=== PATIENT | male | born 1995 | race Caucasian/White ===

== ENCOUNTER 2018-07-05 14:47 | Emergency (ER) | payer BC, MEDICAID ==
[2018-07-05] MEDS ORDERED: 0.9 % SODIUM CHLORIDE 1,000 ML BAG IV ONE ×3 (16:14→18:08)
[2018-07-05] MEDS ORDERED: ACETAMINOPHEN 1,000 MG/100 ML BTL IVPB ONE (16:14)
[2018-07-05 16:32] LABS: HEMATOCRIT 40.7 % (42.0-52.0); HEMOGLOBIN 12.9 gm/dl (14.0-18.0); MEAN CELL VOLUME 98.3 fl (81-97); MEAN CORPUSCULAR HGB CONC 31.7 g/dl (32-36); MEAN PLATELET VOLUME 9.7 fl (7.4-10.4); PLATELET COUNT 240 K/uL (130-400); RED BLOOD COUNT 4.14 M/uL (4.40-5.70); RED CELL DISTRIBUTION WIDTH 13.6 % (11.5-14.5)
[2018-07-05 16:38] LABS: MEAN CORPUSCULAR HEMOGLOBIN 31.1 pg (27-33); WHITE BLOOD COUNT W/O DIFF 30.8 K/uL (4.2-12.2)
[2018-07-05 16:39] LABS: STREP A SCREEN POSITIVE (NEGATIVE)
[2018-07-05 16:45] LABS: INFLUENZA A NEGATIVE (NEGATIVE); INFLUENZA B NEGATIVE (NEGATIVE)
[2018-07-05] MEDS ORDERED: CEFTRIAXONE 1GM/50ML BAG 1 GM/50 ML BAG IVPB ONE (16:45)
[2018-07-05 16:46] LABS: BLOOD UREA NITROGEN 20 mg/dL (6-20); CREATININE 0.6 mg/dL (0.7-1.2); EST GLOMERULAR FILTRATION RATE > 60 mL/min
--- NOTE | 2018-07-05 16:46 | Emergency Department Record ---
History of Present Illness - General Chief Complaint: Fever Stated Complaint: FEVER Time Seen by Provider: 07/05/18 16:05 Source: Patient, Family Mode of Arrival: Wheelchair Limitations: No limitations - History of Present Illness Initial Comments: 22 yo male with CP presents with fever, nasal drainage, and mild cough. The onset of the nasal drainage was the last few days. He developed a fever today. No nausea or vomiting. No rash. No diarrhea. He has an extensive history of seizures. He has had a few seizures as well. This is not unusual with his CP when he has fever. His mother noted some odor in his breath. He is eating and drinking normally. He has been more tired this afternoon. His baseline is that he groans, yells, laughs and generally feisty. MD Complaint: Fever, Malaise Onset/Timin -: Days(s) Context: Other Associated Symptoms: Denies other symptoms Treatments Prior to Arrival: None - Related Data Previous Rx's Medication Instructions Recorded Amoxicillin/Potassium Clav 1 tab PO TID #30 tab 07/05/18 [Augmentin 500Mg/125Mg] Azithromycin [Zithromax] 250 mg PO DAILY #4 tablet 07/05/18 Allergies Allergy/AdvReac Type Severity Reaction Status Date / Time No Known Drug Allergies Allergy Verified 07/05/18 15:28 Travel Screening - Travel/Exposure Within Last 30 Days Have you traveled within the last 30 days?: No Review of Systems Constitutional: Reports: Fever, Malaise Eyes: Denies: Eye discharge, Eye pain, Photophobia, Vision change ENT: Reports: Congestion, Throat pain. Denies: Ear pain Respiratory: Reports: Cough Cardiovascular: Denies: Chest pain, Syncope Endocrine: Reports: Fatigue Gastrointestinal: Denies: Abdominal pain, Diarrhea, Nausea, Vomiting Genitourinary: Denies: Dysuria, Frequency, Hematuria Musculoskeletal: Denies: Arthralgia, Back pain, Myalgia Skin: Denies: Bruising, Change in color, Rash Neurological: Reports: Seizure, Other (Non verbal at baseline) Past Medical History - SOCIAL HISTORY Smoking Status: Never smoker Alcohol Use: None Drug Use: None - RESPIRATORY Hx Respiratory Disorders: No - CARDIOVASCULAR Hx Cardio Disorders: No - NEURO Hx Neuro Disorders: Yes Hx Seizures: Yes Comment:: CP - GI Hx GI Disorders: No - Hx Genitourinary Disorders: No - ENDOCRINE Hx Endocrine Disorders: No - MUSCULOSKELETAL Hx Musculoskeletal Disorders: Yes Hx Musculoskeletal Disease: Yes (CP) - PSYCH Hx Psych Problems: Yes - HEMATOLOGY/ONCOLOGY Hx Hematology/Oncology Disorders: No Family Medical History Any Significant Family History?: Yes Hx Depression: Mother Hx Heart Disease: Grandparents Hx HTN: Grandparents Hx Stroke: Grandparents Physical Exam - General General Appearance: Alert, Cooperative Limitations: Other (Severe CP) - Head Head exam: Atraumatic, Normocephalic, Normal inspection - Eye Eye exam: Normal appearance, PERRL. negative: Conjunctival injection - ENT ENT exam: Mucous membranes moist, TM's normal bilaterally. negative: Normal orophraynx Ear exam: Normal external inspection Nasal Exam: Discharge Mouth exam: Normal external inspection Teeth exam: Normal inspection Throat exam: Tonsillar erythema, Other (odorous breath) - Neck Neck exam: Normal inspection, Full ROM. negative: Lymphadenopathy - Respiratory Respiratory exam: Normal lung sounds bilaterally. negative: Rhonchi, Stridor, Wheezes - Cardiovascular Cardiovascular Exam: Normal rhythm, Tachycardia - GI/Abdominal GI/Abdominal exam: Soft. negative: Distended, Guarding, Rebound, Rigid, Tenderness - Rectal Rectal exam: Deferred - exam: Deferred - Extremities Extremities exam: negative: Pedal edema, Tenderness - Back Back exam: Denies: CVA tenderness (R), CVA tenderness (L) - Neurological Neurological exam: Altered (baseline is non verbal, groan, yells, laughs) - Skin Skin exam: Dry, Intact, Normal color, Warm Course Vital Signs 07/05/18 15:25 Temperature 100.2 F H Pulse Rate 139 H Respiratory 28 H Rate Blood Pressure 106/62 Pulse Ox 95 - Reevaluation(s) Reevaluation #1: 07/05/18 16:46 The CBC demonstrated a WBC of 30 The strep screen is positive 07/05/18 17:35 The results were discussed with the parents. The patient clinically is doing much better. He is active, alert, more baseline with personality. 07/05/18 17:39 07/05/18 18:17 The patient continues to do very well. He is feisty and active which is his baseline per the parents. I have explained that we could admit him for observation given the elevated WBC count. At this time they prefer to take him home since he is eating normally, back to his baseline, and his special needs would likely do much better at home as long as he is tolerating food, antibiotics and acting himself. 07/05/18 18:59 The CXR was read as patchy air space disease right upper lobe and medial right lung base The results were discussed with the patient Last BP 83/ His normal BP is normally lower new 100/ 07/05/18 19:06 When properly positioned his BP is 106/ He is at his baseline, he is eating and drinking, no hypoxia, fever resolved The parents and I spoke at length. Given he is at baseline, not hypoxic, eating and drinking they still prefer DC home. The parents are clearly very reliable with their care of Donn. I discussed the risks of needed to return if he is not eating, taking his antibiotic, appears to have any shortness of breath. They understand and are comfortable with this plan. I added Zithromax is case there is an early pneumonia. His lungs are clear and his breathing is non labored. I did discuss tylenol and motrin for fevers as well. I still recommend return tomorrow to recheck the CBC and allow me to recheck him. 07/05/18 19:21 07/05/18 19:42 At DC the patient is doing very well. He is alert, active, groaning (which is his normal baseline). Medical Decision Making - Lab Data Result diagrams: 07/05/18 16:25 07/05/18 16:25 Lab Results 07/05/18 07/05/18 Range/Units 16:25 16:25 WBC 30.8 H* (4.2-12.2) K/uL RBC 4.14 L (4.40-5.70) M/uL Hgb 12.9 L (14.0-18.0) gm/dl Hct 40.7 L (42.0-52.0) % MCV 98.3 H (81-97) fl MCH 31.1 (27-33) pg MCHC 31.7 L (32-36) g/dl RDW 13.6 (11.5-14.5) % Plt Count 240 (130-400) K/uL MPV 9.7 (7.4-10.4) fl Eosinophils % Not Reportable Basophils % Not Reportable Influenza Type A Ag Negative (NEGATIVE) Influenza Type B Ag Negative (NEGATIVE) Group A Strep Screen Positive H (NEGATIVE) Disposition Disposition: Discharge Clinical Impression: Strep pharyngitis, Pneumonia Disposition: Home, Self-Care Condition: (2) Stable Instructions: Strep Throat (ED) Additional Instructions: Call your doctor for the next available follow up appointment Review this ER visit and the tests performed with your family doctor Return to the ER for a recheck if worse, any new concerns or questions Take the prescriptions provided as directed Return in one day to repeat the CBC (blood count) Prescriptions: Amoxicillin/Potassium Clav [Augmentin 500Mg/125Mg] 1 tab PO TID #30 tab Azithromycin [Zithromax] 250 mg PO DAILY #4 tablet Forms: Patient Portal Access Time of Disposition: 19:26 Quality - Quality Measures Quality Measures: N/A - Blood Pressure Screening Does Patient Have Any of the Following: No Blood Pressure Classification: Normal BP Reading Systolic Measurement: 106 Diastolic Measurement: 62 Screening for High Blood Pressure: < Normal BP, F/U Not Required > [G8783]
[2018-07-05 16:49] LABS: GLUCOSE,RANDOM 117 mg/dL (74-109)
[2018-07-05 16:52] LABS: ALB/GLOB RATIO 1.3 (1.1-1.8); ALKALINE PHOSPHATASE 174 U/L (40-129); ALT/SGPT 7 U/L (<41); AST/SGOT 16 U/L (10.0-50.0)
[2018-07-05 17:20] LABS: ABSOLUTE NEUTROPHIL COUNT 15.72
[2018-07-05 17:21] LABS: ANISOCYTOSIS 1+; PLATELET ESTIMATE NORMAL (NORMAL)
[2018-07-05] MEDS ORDERED: IBUPROFEN 100 MG/5 ML SUSP PO ONE (17:55)
[2018-07-05] MEDS ORDERED: AMOX TR/POT CLAV. 500MG/125MG TABLET PO ONE ×2 (19:20)
[2018-07-05] MEDS ORDERED: AZITHROMYCIN 500 MG TABLET PO ONE (19:20)
--- NOTE | 2018-07-08 06:39 | RADIOLOGY REPORT ---
EXAM: PORTABLE AP CHEST HISTORY: CEREBRAL PALSY, COUGH/FATIGUE. TECHNIQUE: A portable AP view of the chest was obtained. Comparison: 10/06/13. FINDINGS: The cardiomediastinal silhouette is stable. There is patchy air space disease within the right lung involving the right upper lobe and medial right lung base. The left lung appears clear. No conclusive pleural effusion. IMPRESSION: PATCHY AIR SPACE DISEASE RIGHT UPPER LOBE AND MEDIAL RIGHT LUNG BASE. JOB NUMBER: [id number] MTDD
== END 2018-07-05 19:39 | disposition home or self-care (01) ==
LOC: ER 14:47
DX: J18.9 Pneumonia, unspecified organism (principal); J02.0 Streptococcal pharyngitis
CPT/HCPCS: 99284 ×2; 96365; 96366; 80053; 87880; 87400; 85027; 71045; J0696; J7030

== ENCOUNTER 2018-07-06 11:50 | Emergency (ER) | payer BC, MEDICAID ==
[2018-07-06 12:12] LABS: HEMATOCRIT 38.4 % (42.0-52.0); HEMOGLOBIN 11.8 gm/dl (14.0-18.0); MEAN CELL VOLUME 100.8 fl (81-97); MEAN CORPUSCULAR HGB CONC 30.7 g/dl (32-36); MEAN PLATELET VOLUME 9.6 fl (7.4-10.4); PLATELET COUNT 213 K/uL (130-400); RED BLOOD COUNT 3.81 M/uL (4.40-5.70); RED CELL DISTRIBUTION WIDTH 13.3 % (11.5-14.5)
--- NOTE | 2018-07-06 12:12 | Emergency Department Record ---
History of Present Illness - General Stated Complaint: redraw Time Seen by Provider: 07/06/18 11:54 Source: Patient, Family Mode of arrival: Wheelchair Limitations: No limitations - History of Present Illness Initial Comments: 22 yo male with severe CP returns for a recheck after diagnosis of pneumonia, strep throat and elevated WBC of 30. His father reports he is doing very well. He is eating, drinking and taking his antibiotic. No fevers. He is "back to his old self" MD Complaint: Abnormal lab Symptoms Since Prior Visit: No new symptoms Associated Symptoms: None - Related Data Previous Rx's Medication Instructions Recorded Amoxicillin/Potassium Clav 1 tab PO TID #30 tab 07/05/18 [Augmentin 500Mg/125Mg] Azithromycin [Zithromax] 250 mg PO DAILY #4 tablet 07/05/18 Allergies Allergy/AdvReac Type Severity Reaction Status Date / Time No Known Drug Allergies Allergy Verified 07/06/18 12:14 Review of Systems Constitutional: Reports: Fever (resolved). Denies: Chills, Malaise Eyes: Denies: Eye discharge ENT: Reports: Congestion Respiratory: Reports: Cough Cardiovascular: Denies: Chest pain, Syncope Endocrine: Denies: Fatigue Gastrointestinal: Denies: Abdominal pain, Diarrhea, Nausea, Vomiting Skin: Denies: Change in color, Rash Neurological: Reports: Other Past Medical History - SOCIAL HISTORY Smoking Status: Never smoker Drug Use: None - RESPIRATORY Hx Respiratory Disorders: No - CARDIOVASCULAR Hx Cardio Disorders: No - NEURO Hx Neuro Disorders: Yes Hx Seizures: Yes Comment:: CP - GI Hx GI Disorders: No - Hx Genitourinary Disorders: No - ENDOCRINE Hx Endocrine Disorders: No - MUSCULOSKELETAL Hx Musculoskeletal Disorders: Yes Hx Musculoskeletal Disease: Yes (CP) - PSYCH Hx Psych Problems: Yes - HEMATOLOGY/ONCOLOGY Hx Hematology/Oncology Disorders: No Family Medical History Hx Depression: Mother Hx Heart Disease: Grandparents Hx HTN: Grandparents Hx Stroke: Grandparents Physical Exam - General General Appearance: Alert, Other (baseline) Limitations: No limitations - Head Head exam: Atraumatic, Normal inspection - Eye Eye exam: Normal appearance - ENT ENT exam: Normal exam Ear exam: Normal external inspection Nasal Exam: Normal inspection - Neck Neck exam: Normal inspection - Respiratory Respiratory exam: Normal lung sounds bilaterally. negative: Respiratory distres s, Rhonchi, Wheezes - Cardiovascular Cardiovascular Exam: Regular rate, Normal rhythm, Normal heart sounds - Neurological Neurological exam: Alert - Psychiatric Psychiatric exam: Agitated (baseline) Course - Reevaluation(s) Reevaluation #1: 07/06/18 12:19 The CBC was reviewed The WBC is down to 26 The clinical improvement is significant I recommend a recheck in 1-2 weeks to ensure normal Medical Decision Making - Lab Data Result diagrams: 07/06/18 11:55 Disposition Disposition: Discharge Clinical Impression: Strep pharyngitis, Pneumonia Disposition: Home, Self-Care Condition: (1) Good Instructions: Strep Throat (ED) Additional Instructions: Call your doctor for the next available follow up appointment Review this ER visit and the tests performed with your family doctor Return to the ER for a recheck if worse, any new concerns or questions Take the prescriptions provided as directed Time of Disposition: 12:12 Quality - Quality Measures Quality Measures: N/A - Blood Pressure Screening Does Patient Have Any of the Following: No Blood Pressure Classification: Normal BP Reading Systolic Measurement: 112 Diastolic Measurement: 79 Screening for High Blood Pressure: < Normal BP, F/U Not Required > [G8783]
[2018-07-06 12:16] LABS: MEAN CORPUSCULAR HEMOGLOBIN 30.9 pg (27-33)
== END 2018-07-06 12:30 | disposition home or self-care (01) ==
LOC: ER 11:50
DX: J18.9 Pneumonia, unspecified organism (principal); J02.0 Streptococcal pharyngitis
CPT/HCPCS: 85027; 99283